=== PATIENT | female | born 1955 | race Caucasian/White ===

== ENCOUNTER 2018-05-11 10:30 | Outpatient (CLI) | payer BC ==
--- NOTE | 2018-05-11 12:01 | RAD ---
LUMBAR SPINE TWO VIEWS: Date: 05-11-18 Comparison: None. History: Surgery two weeks ago, lumbar radiculopathy, back pain and numbness to the right great toe. FINDINGS: Posterior fusion hardware noted at the L4-5 level with bilateral L4 and L5 pedicle screws and vertica lly oriented interlocking rods. There is anterolisthesis measuring 7 mm at the L4-5 level. Bilateral laminectomy changes are noted at L4 and L5. At L2-3 there is mild disc space narrowing and anterior o steophyte formation. No acute osseous abnormality is noted. IMPRESSION: Post-operative and degenerative changes within the lumbar spine as detailed above. POS: SIRI
== END 2018-05-11 10:31 | disposition home or self-care (01) ==
LOC: TBSIIMAG 10:30
PROVIDERS: ATTEND Physician Assistant
DX: M47.26 Other spondylosis with radiculopathy, lumbar region (principal); M43.16 Spondylolisthesis, lumbar region; Z98.890 Other specified postprocedural states
CPT/HCPCS: 72100

== ENCOUNTER 2018-06-24 13:51 | Outpatient (CLI) | payer BC ==
--- NOTE | 2018-06-24 15:27 | RAD ---
THREE VIEWS OF THE LUMBOSACRAL SPINE: INDICATION: Followup surgery. COMPARISON: Prior exam dated 05/11/18. FINDINGS: Laminectomy changes and interbody fusion construct at L4-5 appears stable. The instrumentation proje cts in the expected position. The listhesis at L4-5 is similar. Spinal alignment otherwise is uncha nged. Vertebral body heights are preserved. IMPRESSION: Stable postoperative lumbar spine. POS: CET
== END 2018-06-24 13:52 | disposition home or self-care (01) ==
LOC: TBSIIMAG 13:51
PROVIDERS: ATTEND Neurological Surgery
DX: M51.36 Other intervertebral disc degeneration, lumbar region (principal); Z98.890 Other specified postprocedural states
CPT/HCPCS: 72100